=== PATIENT | female | born 2005 | race Caucasian/White ===

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

== ENCOUNTER 2025-07-03 20:15 | Emergency (ER) | payer MEDICAID, SELFPAY ==
--- OUTSIDE RECORDS SUMMARY | 2025-05-24 09:00 | XMS_ITS | Encounter Summary ---
Author Organization [facility] Address [address] [place] [address] Care Team Providers Care Infantryman Name Role Phone Minda Flower M.D. Primary Care Provider [phone] Reason for Visit * Reason Comments Follow-up * Appointment Request (Routine) - Closed Specialty Diagnoses / Procedures Referred By Blake caldwell Referred To Contact Family Medicine Referral ID Status Reason Start Date Expiration Date Visits Re quested Visits Authorized [id number] Closed 05/09/2025 08/09/2026 1 1 Encounter Details Date Type Department Care Team (Late st Contact Info) Description 05/24/2025 9:00 AM CDT Office Visit Department of Family Medicine and Residency in [address] [phone] Higinio Alonzo D.O. [address] [place] [phone] Preoperative Exam (Primary Dx) Discharge Disposition: Home or Self Care Social History Tobacco Use Types Packs/Day Years Used Date Smoking Tobacco: Never Passive Smoke Exposure: Past Smokeless Tobacco: Never Tobacco Cessation:Counseling Given: Not Answered Alcohol Use Standard Drinks/Week Comments Yes 1 (1 standard drink = 0.6 oz pur e alcohol) [facility] Utilities Answer Date Recorded In the past 12 months has e electric, gas, oil, or water company threatened to shut off services in your home? No 10/10/2024 Hunger Vital Sign Answer Date Recorded Within the past 12 months, y ou worried that your food would run out before you got the money to buy more. Never true 10/10/20 24 Within the past 12 months, t he food you bought just didn't last and you didn't have money to get more. Never true 10/10/2024 PRAPARE - Transportation Answer Date Re corded In the past 12 months, has l ack of transportation kept you from medical appointments or from getting medications? No 09/23 In the past 12 months, has l ack of transportation kept you from meetings, work, or from getting things needed for daily living? No 10/10/2024 Depression Answer Date Recor ded PHQ-9 Total Score (max 27) 19 04/11 Housing Stability Answer Date Recorded What is your living situation today? I have a [facility] place to live 10/10/2024 Comments No Sex and Gender Information Value Date Recorded Sex Assigned at Female 10/10/2024 9:07 AM GLUELINE WORKER Legal Sex Female 5:05 PM GLUELINE WORKER Gender Identity Female 10/10/2024 9:07 AM GLUELINE WORKER Sexual Orientation Choose not to disclose 2023 9:07 AM GLUELINE WORKER documented as of this encounter Last Filed Vital Signs Vital Sign Reading Time Taken Comments Blood Pressure 119/75 05/24/2025 8:58 AM CDT Pulse 91 05/24/2025 8:58 AM CDT Temperature - - Respiratory Rate - - Oxygen Saturation - - Inhaled Oxygen Concentration - - Weight 96.6 kg (212 lb 15.4 oz) 05/24/2025 8:58 AM CDT Height 171.7 cm (5' 7.6) 05/24/2025 8:58 AM CDT Body Mass Index 32.77 05/24/2025 8:58 AM CDT documented in this encounter H&P Notes * Higinio Alonzo D.O. - 05/24/2025 9:00 AM CDT CHIEF COMPLAINT Pre-operative evaluation of risk HISTORY OF PRESENT ILLNESS Poppy Lopez is a 19 y.o. female who I am asked to see in preoperative consult prior to undergoing Knee arthroscopy scar tissue and lesion removal due to history of torn ACL partial tear of meniscus. The surgery is scheduled for 05/29/25. Patient is feeling mildly ill this morning. 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 She is afebrile and free of systemic symptoms. ALLERGIES Allergies[1] MEDICATIONS Medications Ordered Prior to Encounter[2] PAST MEDICAL/SURGICAL HISTORY Cardiovascular History Previous DC: no CABG: no Stress tests: no ECHO: no Catheterization: no Pulmonary History Asthma/ COPD: no TONY: no Other Renal insufficiency: no Liver disease or cirrhosis: no Bloodborne infectious history: no Stroke or seizure history: no Appliances or implants: no Medical History[3] Surgical History[4] SOCIAL HISTORY Student at [employer], Pre-PT, Working in a longterm and hoping to join [email or web address]. FAMILY HISTORY Anesthesia history: Patient is not aware of any personal or family history of sudden cardiac ,malignant hyperthermia, or other anesthesia complications. Family History[5] REVIEW OF SYSTEMS Functional Status Assessment: 4-10 METs (can do heavy housework, climb 2 flights of stairs) Constitutional: - Negative for fever, weight gain of more than 10 pounds and weight loss of more than 10 pounds. Skin: - Negative for skin rash and change in mole or skin spot. Eyes: - Negative for visual problems and sudden loss of vision. ENT: Positive for sinus congestion. - Negative for difficulty hearing. Respiratory: Positive for coughing up mucus (phlegm). Cardiovascular: - Negative for chest pain, pressure or tightness, rapid or fluttering heart beat, shortness of breath when lying flat (Congestion - in nose and chest) and concerns for appearing blue or pale. Pain inthe calf muscles when walking: Only in the right leg while. Gastrointestinal: - Negative for abdominal (belly) pain or cramping, nausea and vomiting. Genitourinary: - Negative for difficulty urinating and pain with urination. Musculoskeletal: Positive for pain or stiffness in the joints, joint swelling and muscle pain/stiffness. Neurological: - Negative for light-headedness and headaches. Psychiatric/Behavioral: Positive for loud snoring. - Negative for excessive daytime sleepiness/tiredness, stopping breathing, choking, or gasping while asleep and sleep disturbance. PHYSICAL EXAM Vitals: BP 119/75 BMI 32.77 GENERAL: Well appearing, no acute distress AIRWAY: Mallampati score II (hard and soft palate, upper portion of tonsils anduvula visible). Cervical spine mobility Normal. Temporomandibular joint mobility normal. Teeth: natural, (-) diseased, (-) loose . PULMONARY: Clear to bilateral auscultation, no wheezing or crackles appreciated. Oxygen saturation adequate on room air CARDIOVASCULAR: Regular rate and rhythm, no murmur appreciated. EXTREMITIES: Trace edema. NEUROLOGICAL: Alert and oriented x3. Cognitively intact, able to understand reason for surgical procedure and wishes to proceed. HEMATOLOGIC: No petechiae, bruising or rashes ASSESSMENT/ PLAN Preoperative Exam Patient does not have any contraindications for planned surgery at this time. Previous surgery for torn ACL and partially torn meniscus went without complication and patient had no adverse reactions to anesthesia. This patient is medically optimized for surgery. Workup: - Recommended pre-op diagnostic workup to include: Age < 50: No additional tests required Procedure risk: - Intermediate Risk (cardiac risk <5%): CEA, head/neck surgery, intraabdominal or intrathoracic surgery, orthopedic surgery, prostate surgery - Orthopedic Surgery Cardiac risk: - History of ischemic heart disease: No (0) - History of heart failure: No (0) - History of cerebrovascular disease (stroke or TIA): No (0) - Diabetes requiring pre-operative insulin: No (0) - Pre-operative creatinine >2: No (0) - High-risk surgery (intraperitoneal, intrathoracic, or suprainguinal vascular): No (0) Overall Cardiac Risk: RCRI score is Class I (0 points), indicating a 0.4% risk of a major cardiac event . Further cardiac workup prior to surgery to include: Not indicated at this time. Pulmonary Risk: - High risk diagnoses include: N/A - Stop Bang Total Score: Sleep study performed in december was negative for sleep apnea Other: - Diabetes: The patient does not have diabetes - Delirium Risk: does not have increased risk. Perioperative Medication Management: - Discontinue NSAID use 7 days prior to procedure. - Higinio Alonzo D.O. Resident Physician [facility] Family Medicine Residency I saw and evaluated the patient with the teaching physician, Mark Anthony Madrid DO. They participated in the smith portions of the service and reviewed and agree with my documentation. [1] Allergies Allergen Reactions Amoxicillin Rash [2] Current Outpatient Medications on File Prior to Visit Medication Sig Dispense Refill acetaminophen (TylenoL) 325 mg tablet Take 325 mg by mouth every 4 (four) hours as needed. buPROPion XL (Wellbutrin XL) 300 mg 24 hr tablet Take 1 tablet (300 mg total) by mouth every morning. ibuprofen 600 mg tablet Take 600 mg by mouth every 8 (eight) hours as needed. norgestimate-ethinyl estradioL (Ortho Tri-Cyclen, 28,) 0.18 mg/0.215 mg/0.25 mg- 35 mcg (28) per tablet Take 1 tablet by mouth daily. 28 tablet 12 No current facility-administered medications on file prior to visit. [3] Past Medical History: Diagnosis Date Anxiety Generalized Disorder 2013 Concussion Loss Of Consciousness Unspecified Duration Initial 2012 Depressive Disorder 2014 Hypertension NOS [4] Past Surgical History: Procedure Laterality Date ACHILLES TENDON LENGTHENING Bilateral 2013 ANTERIOR CRUCIATE LIGAMENT REPAIR Right 07/21/2024 + meniscus repair OTHER SURGICAL HISTORY Gastrocnemius recession acl and meniscus repair [5] Family History Problem Relation Name Age of Onset Other (breast cysts) Mother isamar Thyroid disease Mother isamar Degenerative disc disease Mother isamar Depression Mother isamar Anxiety disorder Mother isamar Obesity Mother isamar ADD Mother isamar Hypertension Father Hyperlipidemia Father Asthma Sister Allergies Sister Other (breast cysts) Sister Hypertension Maternal Grandmother Diabetes type II Maternal Grandmother Arthritis Maternal Grandmother Stroke Grandfather maternal Coronary artery disease Grandfather maternal Hypertension Grandmother maternal Ovarian cancer Grandmother Breast cancer Maternal Great Grandmother Obesity Paternal Grandmother daleen Alcohol abuse Sister dad Drug abuse Sister dad Depression Sister dad Diabetes Sister dad Hypertension Sister dad Stroke Sister dad Asthma Sister dad Anxiety disorder Sister dad Arthritis Sister dad ADD Sister dad Alcohol abuse Mother's Brother Que Depression Mother's Brother Que Anxiety disorder Mother's Brother Que Suicide Attempts Mother's Brother Que Depression Sister cheridan Anxiety disorder Sister cheridan Depression Brother ronald ADD Brother ronald Depression Brother navi ADD Brother navi Cosigned by Mark Anthony Madrid D.O. at 05/24/2025 2:40 PM CDT documented in this encounter Plan of Treatment Upcoming Encounters Date Type Department Care Team (Late st Contact Info) Description 10/17/2025 11:30 AM GLUELINE WORKER Office Visit Department of Family Medicine in [place], [place] [address] [place] [phone] Minda Flower M.D. [address] [place] [phone] documented as of this encounter Visit Diagnoses Diagnosis Preoperative Exam- Primary documented in this encounter Additional Health Concerns Assessment Noted Time PHQ-9 Depression Total Score: 19 025 3:59 PM CDT documented as of this encounter Care Teams Infantryman Relationship Specialty Start Date End Date Minda Flower M.D. [address] [place] [phone] PCP - General Family Medicine 10/17/24 documented as of this encounter
--- OUTSIDE RECORDS SUMMARY | 2025-05-24 10:20 | XMS_ITS | Encounter Summary ---
Author Organization [facility] Address [address] [place] [address] Care Team Providers Care Contracting Analyst Name Role Phone Minda Flower M.D. Primary Care Provider [phone] Reason for Referral * Outpatient (Routine) - Closed Specialty Diagnoses / Procedures Referred By Contac t Referred To Contact Diagnoses Lump In The Right Breast Upper Outer Quadrant Lump In The Left Breast Upper Outer Quadrant Procedures BI Ultrasound Breast Focused Bilateral Beverly Rosenberg M.D. [address] [place] [phone] Phone: tel: fax: [facility] Referral ID Status Reason Start Date Expiration Date Visits Re quested Visits Authorized [id number] Closed 05/24/2025 08/24/2026 1 1 Reason for Visit * Reason Comments Follow-up * Appointment Request (Routine) - Closed Specialty Diagnoses / Procedures Referred By Contac t Referred To Contact Family Medicine Referral ID Status Reason Start Date Expiration Date Visits Re quested Visits Authorized [id number] Closed 04/25/2025 07/26/2026 1 1 Encounter Details Date Type Department Care Team (Late st Contact Info) Description 05/24/2025 10:20 AM CDT Office Visit Department of Family Medicine in [place], [place] [address] [place] [phone] Beverly Rosenberg M.D. [address] [place] [phone] Menstrual Irregularity (Primary Dx); Screening Examination For Thyroid Disorder; Lump In The Right Breast Upper Outer Quadrant; Lump In The Left Breast Upper Outer Quadrant Social History Tobacco Use Types Packs/Day Years Used Date Smoking Tobacco: Never Passive Smoke Exposure: Past Smokeless Tobacco: Never Alcohol Use Standard Drinks/Week Comments Yes 1 (1 standard drink = 0.6 oz pur e alcohol) [facility] Utilities Answer Date Recorded In the past [...] your living situation today? I have a [facility] place to live 10/10/2024 Comments No Sex and Gender Information Value Date Recorded Sex Assigned at Female 10/10/2024 9:07 AM DATA MINER Legal Sex Female 5:05 PM DATA MINER Gender Identity Female 10/10/2024 9:07 AM DATA MINER Sexual Orientation Choose not to disclose 2023 9:07 AM DATA MINER documented as of this encounter Last Filed Vital Signs Vital Sign Reading Time Taken Comments Blood Pressure 100/58 05/24/2025 10:15 AM CDT Pulse 92 05/24/2025 10:15 AM CDT Temperature 37.3 C (99.1 F) 05/24/2025 10:15 AM CDT Respiratory Rate - - Oxygen Saturation - - Inhaled Oxygen Concentration - - Weight 96.3 kg (212 lb 4.9 oz) 05/24/2025 10:15 AM CDT Height - - Body Mass Index 32.67 05/24/2025 8:58 AM CDT documented in this encounter Progress Notes * Beverly Rosenberg M.D. - 05/24/2025 10:20 AM CDT DATE OF VISIT: 05/24/2025 SUBJECTIVE CHIEF COMPLAINT / REASON FOR VISIT Poppy Lopez is a 19 y.o. female who presents for evaluation of Follow-up. The patient verbally consented to an audio recording of their visit to assist with the completion of documentation. History of Present Illness Poppy Lopez is a 19 year old female who presents for follow-up results after a preoperative consult for knee arthroscopy. She experiences menstrual irregularities, having had periods twice a month before starting control. Since starting control, she has had one period this month. She is monitoring the effects of the control on her cycle. Her family history includes hyperthyroidism, and her recent TSH level is 0.5, within the normal range. She is concerned about potential thyroid issues in the future. She has detected a lump in her left breast and has a family history of benign breast lumps. She seeks further evaluation for this finding. She is currently taking Wellbutrin 300 mg, managed by her psychiatrist, with an adequate supply. OBJECTIVE VITAL SIGNS BP 100/58 (BP Location: Right arm, Patient Position: Sitting, Cuff Size: Large) Pulse 92 Temp 37.3 ??C (Temporal) Wt 96.3 kg LMP 05/03/2025 (Approximate) BMI 32.67 kg/m?? Physical Exam Constitutional Appearance: She is well-developed. HENT Head: Normocephalic and atraumatic. Eyes General: No scleral icterus. Conjunctiva/sclera: Conjunctivae normal. Chest Chest wall: No mass, swelling or tenderness. Breasts: Breasts are symmetrical. Right: Mass present. No skin change or tenderness. Left: Mass present. No skin change or tenderness. Comments: Right breast lump palpable at 11:00, left breast lump palpable at 2:00 Lymphadenopathy Upper Body: Right upper body: No axillary adenopathy. Left upper body: No axillary adenopathy. Neurological Mental Status: She is alert and oriented to person, place, and time. Psychiatric Behavior: Behavior normal. Thought Content: Thought content normal. Physical Exam ASSESSMENT/ PLAN Menstrual Irregularity Menstrual Irregularities Initiated control due to frequent periods. Thyroid function normal. control partially effective. - Reassess control effectiveness in future visits. Screening Examination For Thyroid Disorder Hyperthyroidism Risk Family history of hyperthyroidism. TSH level normal. Monitoring necessary due to family history. - Monitor thyroid function annually or if symptoms develop. Lump In The Right Breast Upper Outer Quadrant Breast Lump right breast lump at 11:00, left breast lump at 2:00. Reports left breast lump. Family history of benign lumps. Examination and possible ultrasound planned. - Perform breast examination. - Order breast ultrasound if indicated. Orders: BI Ultrasound Breast Focused Bilateral; Future Lump In The Left Breast Upper Outer Quadrant Breast Lump Reports left breast lump. Family history of benign lumps. Examination and possible ultrasound planned. - Perform breast examination. - Order breast ultrasound if indicated. Orders: BI Ultrasound Breast Focused Bilateral; Future documented in this encounter Plan of Treatment Upcoming Encounters Date Type Department Care Team (Late st Contact Info) Description 10/17/2025 11:30 AM DATA MINER Office Visit Department of Family Medicine in [place], [place] [address] [place] [phone] Minda Flower M.D. [address] [place] [phone] documented as of this encounter Results * BI Ultrasound Breast Focused Bilateral (06/09/2025 8:03 AM CDT) Anatomical Region Laterality Modality Breast, Breast Imaging RST L OS, Breast Imaging ARZ LOS, Breast Imaging FLA LOS Bilateral Ultrasound Impressions 06/09/2025 8:06 AM CDT No sonographic findings of malignancy. RECOMMENDATION: Clinical Management ASSESSMENT: BI-RADS: 1: Negative. Narrative 06/09/2025 8:06 AM CDT EXAM: BI ULTRASOUND BREAST FOCUSED BILATERAL INDICATION: Palpable lump COMPARISON: No prior exams were available for comparison. FINDINGS: Targeted ultrasound of the palpable area concern in the right breast at the 9:00 position 9 cm from the nipple and 11:00 position 2 cm from the nipple demonstrates no underlying sonographic abnormality. There is a ridge of fibroglandular tissue. Targeted ultrasound of the left breast at the palpable area of concern at the 2:00 position 4 cm from the nipple demonstrates no suspicious findings. There is a ridge of fibroglandular tissue. Procedure Note Denilson Reed M.D. - 06/09/2025 EXAM: BI ULTRASOUND BREAST FOCUSED BILATERAL INDICATION: Palpable lump COMPARISON: No prior exams were available for comparison. FINDINGS: Targeted ultrasound of the palpable area concern in the right breast atthe 9:00 position 9 cm from the nipple and 11:00 position 2 cm from thenipple demonstrates no underlying sonographic abnormality. There is aridge of fibroglandular tissue. Targeted ultrasound of the left breast at the palpable area of concern atthe 2:00 position 4 cm from the nipple demonstrates no suspiciousfindings. There is a ridge of fibroglandular tissue. IMPRESSION: No sonographic findings of malignancy. RECOMMENDATION: Clinical Management ASSESSMENT: BI-RADS: 1: Negative. Beverly Rosenberg M.D. IM BI PROCEDURES Final Result documented in this encounter Visit Diagnoses Diagnosis Menstrual Irregularity- Primary Screening Examination For Thyroid Disorder Lump In The Right Breast Upper Outer Quadrant Lump In The Left Breast Upper Outer Quadrant Lump In The Right Breast Upper Outer Quadrant Lump In The Left Breast Upper Outer Quadrant documented in this encounter Additional Health Concerns Assessment Noted Time PHQ-9 Depression Total Score: 19 025 3:59 PM CDT documented as of this encounter Care Teams Contracting Analyst Relationship Specialty Start Date End Date Minda Flower M.D. [address] [phone] PCP - General Family Medicine 10/17/24 documented as of this encounter
--- OUTSIDE RECORDS SUMMARY | 2025-06-09 07:40 | XMS_ITS | Encounter Summary ---
Author Organization [facility] Address [address] [place] [address] Care Team Providers Care Slab Installer Name Role Phone Minda Flower M.D. Primary Care Provider [phone] Reason for Referral * Outpatient (Routine) - Closed Specialty Diagnoses / Procedures Referred By Blake t Referred To Contact Diagnoses Lump In The Right Breast Upper Outer Quadrant Lump In The Left Breast Upper Outer Quadrant Procedures BI Ultrasound Breast Focused Bilateral Bevrely Rosenberg M.D. [address] [place] [address] Phone: tel: fax: [facility] Referral ID Status Reason Start Date Expiration Date Visits Re quested Visits Authorized [id number] Closed 05/24/2025 08/24/2026 1 1 Reason for Visit * Outpatient (Routine) - Closed Specialty Diagnoses / Procedures Referred By Contac t Referred To Contact Diagnoses Lump In The Right Breast Upper Outer Quadrant Lump In The Left Breast Upper Outer Quadrant Procedures BI Ultrasound Breast Focused Bilateral Beverly Rosenberg M.D. [address] [place] [address] Phone: tel: fax: [facility] Referral ID Status Reason Start Date Expiration Date Visits Re quested Visits Authorized [id number] Closed 05/24/2025 08/24/2026 1 1 Encounter Details Date Type Department Care Team (Late st Contact Info) Description 06/09/2025 7:40 AM CDT - 06/09/2025 11:59 PM CDT Hospital Encounter Department of Radiology, [facility], in [place], [place] [address] [place] [phone] Beverly Rosenberg M.D. [address] [facility] [place] [phone] Lump In The Right Breast Upper Outer Quadrant; Lump In The Left Breast Upper Outer Quadrant Discharge Disposition: Home or Self Care Social History Tobacco Use Types Packs/Day Years Used Date Smoking Tobacco: Never Passive Smoke Exposure: Past Smokeless Tobacco: Never Alcohol Use Standard Drinks/Week Comments Yes 1 (1 standard drink = 0.6 oz pur e alcohol) [facility] Utilities Answer Date Recorded In the past 12 months has [employer], gas, oil, or water [employer] threatened to shut off services in your [...] your living situation today? [facility] a [facility] place to live 10/10/2024 Comments No Sex and Gender Information Value Date Recorded Sex Assigned at Female 10/10/2024 9:07 AM CIGARETTE ROLLER Legal Sex Female 5:05 PM CIGARETTE ROLLER Gender Identity Female 10/10/2024 9:07 AM CIGARETTE ROLLER Sexual Orientation Choose not to disclose 2023 9:07 AM CIGARETTE ROLLER documented as of this encounter Medications at Time of Discharge acetaminophen (TylenoL) 325 mg tablet Take 325 mg by mouth every 4 (four) hours as needed. 07/18/2024 buPROPion XL (Wellbutrin XL) 300 mg 24 hr tablet Take 1 tablet (300 mg total) by mouth every morning. 04/11/2025 ibuprofen 600 mg tablet Take 600 mg by mouth every 8 (eight) hours as needed. 07/18/2024 norgestimate-ethi nyl estradioL (Ortho Tri-Cyclen, 28,) 0.18 mg/0.215 mg/0.25 mg-35 mcg (28) per tablet Take 1 tablet by mouth daily. 28 tablet 12 04/11/2025 04/11/2026 documented as of this encounter Plan of Treatment Upcoming Encounters Date Type Department Care Team (Late st Contact Info) Description 10/17/2025 11:30 AM CIGARETTE ROLLER Office Visit Department of Family Medicine in [place], [place] [address] [place] [phone] Minda Flower M.D. [address] [place] [phone] documented as of this encounter Procedures Procedure Name Priority Date/Time Associated Diagnosis Comments BI ULTRASOUND BREAST FOCUSED BILATERAL RAD - Routine (most inpatients and all outpatients) 06/09/2025 8:03 AM CDT Lump In The Right Breast Upper Outer Quadrant Lump In The Left Breast Upper Outer Quadrant documented in this encounter Results * BI Ultrasound Breast [...] documented in this encounter Visit Diagnoses Diagnosis Lump In The Right Breast Upper Outer Quadrant Lump In The Left Breast Upper Outer Quadrant documented in this encounter Additional Health Concerns Assessment Noted Time PHQ-9 Depression Total Score: 19 04/11/2 025 3:59 PM CDT documented as of this encounter Care Teams Slab Installer Relationship Specialty Start Date End Date Minda Flower M.D. [address] [phone] PCP - General Family Medicine 10/17/24 documented as of this encounter
--- OUTSIDE RECORDS SUMMARY | 2025-07-03 20:18 | XMS_ITS | Patient Health Record ---
Author Organization [facility] Address [address] [facility] [address] [place] [address] Care Team Providers Care Registrar [employer] Name Role Phone RADHA FRANKS, CHECO Unavailable [phone] Pamela FRANKS, Wyatt Unavailable [phone] Reason For Referral No Information Plan Of Treatment No Information Insurance Providers Payer Name Payer Address Payer Phone Subscriber Number Group Number Insured Name Patient Relationship to Insured Coverage Start Date Coverage End Date MEDICA PMAP [address] [address] [place] [phone] [id number] Poppy Lopez Self - patient is the insured 6
--- OUTSIDE RECORDS SUMMARY | 2025-07-03 20:18 | XMS_ITS | Patient Health Record ---
Author Organization [facility] Address [address] [place] [address] Care Team Providers Care Automation Qa Analyst Name Role Phone None, None Primary Care Provider ANEUDY Lundberg [phone] Allergies Allergen (clinical drug ingredient) Drug/Non Drug Allergy documented on EMR Reaction Allergy Type Onset Date Status amoxicillin Amoxicillin Unknown Drug Allergy Act annabel Reason For Referral No Information Medications Medication SIG (Take, Route, Frequency, Duration) Notes Start Date End Date Status Dexmethylphenidate HCl ER Active Escitalopram Oxalate Active Social History Tobacco Use: Social History Observation Description Date Details (start date - stop date) Never Smoker NA - NA Social History Alcohol Use: Social Info Question Answer Notes Recreational drugs Recreational Drug Use: No Alcohol Screen Did you have a drink containing alcohol in the past year? No Points 0 Interpretation Negative Tobacco Use: Social Info Question Answer Notes Tobacco use/smoking Are you a nonsmoker Problems Problem Type SNOMED Code ICD Code Onset Dates Problem Status W/U Status Risk Notes Problem Auditory processing disorder (882813892) Auditory processing disorder (H93.25) Active confirmed Plan Of Treatment No Information Insurance Providers Payer Name Payer Address Payer Phone Subscriber Number Group Number Insured Name Patient Relationship to Insured Coverage Start Date Coverage End Date Buck [employer] [address] [place] [phone] [id number] Poppy Lopez Self - patient is the insured [place] [employer] [address] [address] [place] [phone] [id number] Lopez, Poppy Self - patient is the insured Medical (General) History Surgical History Surgery Date(Month/Year) Legs
--- OUTSIDE RECORDS SUMMARY | 2025-07-03 20:19 | XMS_ITS | Encounter Summary ---
Author Organization [facility] Address [address] [place] [address] Care Team Providers Care Warehouse Assistant Name Role Phone Minda Flower M.D. Primary Care Provider [phone] Encounter Details Date Type Department Care Team (Late st Contact Info) Description 05/24/2025 Clinical Communication Department of Family Medicine and Residency in [address] [address] Higinio Alonzo D.O. [address] [place] [phone] Social History Tobacco Use Types Packs/Day Years Used Date Smoking Tobacco: Never Passive Smoke Exposure: Past Smokeless Tobacco: Never Alcohol Use Standard Drinks/Week Comments Yes 1 (1 standard drink = 0.6 oz pur e alcohol) [facility] Utilities Answer Date Recorded In the past 12 months has [employer], gas, oil, or water [employer] threatened to shut off services in your [...] your living situation today? I have a [facility] place to live 10/10/2024 Comments No Sex and Gender Information Value Date Recorded Sex Assigned at Female 10/10/2024 9:07 AM GRAINER MACHINE Legal Sex Female 5:05 PM GRAINER MACHINE Gender Identity Female 10/10/2024 9:07 AM GRAINER MACHINE Sexual Orientation Choose not to disclose 2023 9:07 AM GRAINER MACHINE documented as of this encounter Miscellaneous Notes * Telephone Encounter - Vinita Carney - 05/25/2025 10:22 AM CDT Pre-op notes faxed to requested facility. * Telephone Encounter - Vinita Carney - 05/25/2025 10:20 AM CDT ----- Message from Diane Barron sent at 05/24/2025 2:55 PM CDT ----- ----- Message ----- From: Higinio Alonzo D.O. Sent: 05/24/2025 2:30 PM CDT To: [facility] Net Ui Developer/Ma Team Please Fax to [phone] [facility] documented in this encounter Plan of Treatment Upcoming Encounters Date Type Department Care Team (Late st Contact Info) Description 10/17/2025 11:30 AM GRAINER MACHINE Office Visit Department of Family Medicine in [place], [place] [address] [place] [address] Minda Flower M.D. [address] [place] [address] documented as of this encounter Visit Diagnoses Not on filedocumented in this encounter Additional Health Concerns Assessment Noted Time PHQ-9 Depression Total Score: 19 025 3:59 PM CDT documented as of this encounter Care Teams Warehouse Assistant Relationship Specialty Start Date End Date Minda Flower M.D. [address] [phone] PCP - General Family Medicine 10/17/24 documented as of this encounter
--- OUTSIDE RECORDS SUMMARY | 2025-07-03 20:19 | XMS_ITS | Clinical Summary ---
Author Organization [facility] Address [address] [place] [address] Care Team Providers Care Rolls Mill Operator Name Role Phone Minda Flower M.D. Primary Care Provider [phone] Source Comments Patient records contain information from all sites at [facility]. For routine questions regarding patient records, call [phone] during business hours, M-F 8:00 AM - 5:00 PM Central Time. Record requests for emergency care only can be directed to [phone] at any time.[facility] Allergies Active Allergy Reactions Criticality Noted Date Comments Amoxicillin Rash 10/29/2012 Medications * This document contains information received from the source organization and may not represent a complete record from that organization. acetaminophen (TylenoL) 325 mg tablet Take 325 mg by mouth every 4 (four) hours as needed. 07/18/2024 Active ibuprofen 600 mg tablet Take 600 mg by mouth every 8 (eight) hours as needed. 07/18/2024 Active norgestimate-eth inyl estradioL (Ortho Tri-Cyclen, 28,) 0.18 mg/0.215 mg/0.25 mg-35 mcg (28) per tablet Take 1 tablet by mouth daily. 28 tablet 12 04/11/2025 Active buPROPion XL (Wellbutrin XL) 300 mg 24 hr tablet Take 1 tablet (300 mg total) by mouth every morning. 04/11/2025 Active Active Problems Problem Noted Date Diagnosed Date Depression Major Recurrent In Remission 10/10/20 24 Obsessive Compulsive Disorder 05/06/2019 Insomnia Psychophysiologic 05/06/2019 Posttraumatic Stress Disorder Brief 04/04/2019 Attention Deficit Hyperactive Disorder 5 Overview (04/14/2017): Disorder Attention Deficit Hyperactive (ADHD) Resolved Problems Problem Noted Date Diagnosed Date Resolved Date Obsessive Compulsive Disorder 05/06/2019 10/10/2024 Encounters * This document contains information received from the source organization and may not represent a complete record from that organization. Date Type Department Care Team Description 06/09/2025 7:40 AM CDT - 06/09/2025 11:59 PM CDT Hospital Encounter Department of Radiology, [facility], in [address] [address] Beverly Rosenberg M.D. Lump In The Right Breast Upper Outer Quadrant; Lump In The Left Breast Upper Outer Quadrant Discharge Disposition: Home or Self Care 06/09/2025 Clinical Communication Department of Radiology, [facility], in [address] [address] Shanta Santos R.N. HERS (negative palp) 05/24/2025 10:20 AM CDT Office Visit Department of Family Medicine in [place], [place] [address] [place] [address] Beverly Rosenberg M.D. Menstrual Irregularity (Primary Dx); Screening Examination For Thyroid Disorder; Lump In The Right Breast Upper Outer Quadrant; Lump In The Left Breast Upper Outer Quadrant 05/24/2025 9:00 AM CDT Office Visit Department of Family Medicine and Residency in [address] [address] Higinio Alonzo D.OXenia Preoperative Exam (Primary Dx) Discharge Disposition: Home or Self Care 05/24/2025 Clinical Communication Department of Family Medicine and Residency in [address] [address] Higinio Alonzo D.OXenia 05/04/2025 Documentation Department of Family Medicine in [place] [address] [place] [address] Que Don M.D. 04/11/2025 2:45 PM CDT - 04/11/2025 11:59 PM CDT Hospital Encounter Department of Laboratory Medicine, [facility], in [address] [address] Que Don M.D. Menorrhagia Discharge Disposition: Home or Self Care 04/11/2025 2:00 PM CDT Office Visit Department of Family Medicine in [address] [address] Que Don M.D. Menorrhagia (Primary Dx); Dysmenorrhea 04/11/2025 Results Follow-Up Department of Family Medicine in [address] [address] Que Don M.D. Thyroid Function [place], Hemoglobin from Last 3 Months Immunizations Immunization Administration Dates Next Due 4vHPV (discontinued) 06/19/2015 9vHPV 04/05/2018,06/16/2016 DTaP (Infanrix, [employer]) 07/11/2010,,06/26/2006,2004 H1N1 All Forms 11/20/2009 HepA Pediatric/Adolescent 06/19/2015,04/14/2011 HepB Pediatric/Adolescent 07/11/2010,02/01/2010, 06/02/2005 Hib (PRP-T) (ACTHIB, HIBERIX) 06/26/2006, 005 IPV 02/01/2010,11/20/2009,06/02/2005 Influenza, Unspecified 11/20/2009 MCV4 (Menactra)(Discontinued) 06/16/2016 MMR 11/20/2009,06/26/2006 PCV7 (discontinued) 06/26/2006,06/02/2005 Tdap 06/16/2016 MACKENZIE 11/20/2009,06/26/2006 influenza vaccine quad (FLUZONE/FLUARIX) (6 months and older)(PF) 09/07/2018 Family History Medical History Relation Name Comments ADD Brother 1 ronald Depression Brother 1 ronald ADD Brother 2 navi Depression Brother 2 navi Hyperlipidemia Father Hypertension Father Coronary artery disease Grandfather maternal Stroke Grandfather maternal Hypertension Grandmother 1 maternal Ovarian cancer Grandmother 2 Arthritis Maternal Grandmother Diabetes type II Maternal Grandmother Hypertension Maternal Grandmother Breast cancer Maternal Great Grandmother ADD Mother isamar Anxiety disorder Mother isamar Degenerative disc disease Mother isamar Depression Mother isamar Obesity Mother isamar Thyroid disease Mother isamar breast cysts Mother isamar Alcohol abuse Mother's Brother Que Anxiety disorder Mother's Brother Que Depression Mother's Brother Que Suicide Attempts Mother's Brother Que Obesity Paternal Grandmother daleen ADD Sister 1 dad Alcohol abuse Sister 1 dad Anxiety disorder Sister 1 dad Arthritis Sister 1 dad Asthma Sister 1 dad Depression Sister 1 dad Diabetes Sister 1 dad Drug abuse Sister 1 dad Hypertension Sister 1 dad Stroke Sister 1 dad Allergies Sister 2 Asthma Sister 2 breast cysts Sister 2 Anxiety disorder Sister 3 cheridan Depression Sister 3 cheridan Relation Name Status Comments Brother 1 ronald Alive Brother 2 navi Alive Father Grandfather maternal Grandmother 1 maternal Grandmother 2 Alive Maternal Grandmother Maternal Great Grandmother Mother isamar Alive Mother's Brother Que Alive Paternal Grandmother daleen Alive Sister 1 dad Alive Sister 2 Sister 3 cheridan Alive Social History Tobacco Use Types Packs/Day Years Used Date Smoking Tobacco: Never Passive Smoke Exposure: Past Smokeless Tobacco: Never Tobacco Cessation:Counseling Given: Not Answered Alcohol Use Standard Drinks/Week Comments Yes 1 (1 standard drink = 0.6 oz pur e alcohol) [facility] Utilities Answer Date Recorded In the past 12 months has e [employer], gas, oil, or water company threatened to [...] your living situation today? I have a [facility] place to live 10/10/2024 Comments No Sex and Gender Information Value Date Recorded Sex Assigned at Female 10/10/2024 9:07 AM COOLING TOWER OPERATOR Legal Sex Female 5:05 PM COOLING TOWER OPERATOR Gender Identity Female 10/10/2024 9:07 AM COOLING TOWER OPERATOR Sexual Orientation Choose not to disclose 2023 9:07 AM COOLING TOWER OPERATOR Last Filed Vital Signs Vital Sign Reading Time Taken Comments Blood Pressure 100/58 05/24/2025 10:15 AM CDT Pulse 92 05/24/2025 10:15 AM CDT Temperature 37.3 C (99.1 F) 05/24/2025 10:15 AM CDT Respiratory Rate - - Oxygen Saturation - - Inhaled Oxygen Concentration - - Weight 96.3 kg (212 lb 4.9 oz) 05/24/2025 10:15 AM CDT Height 171.7 cm (5' 7.6) 05/24/2025 8:58 AM CDT Body Mass Index 32.67 05/24/2025 8:58 AM CDT Plan of Treatment Upcoming Encounters Date Type Department Care Team (Late st Contact Info) Description 10/17/2025 11:30 AM COOLING TOWER OPERATOR Office Visit Department of Family Medicine in [place], [place] [address] [place] [phone] Minda Flower M.D. [address] [place] [phone] Health Maintenance Due Date Last Done Comments Hepatitis C Screening 2004 TB Screening during Well Child Visit 2004 1 week Well Child Check-Up 2004 1 month Well Child Check-Up 01/04/2005 2 month Well Child Check-Up 02/05/2005 4 month Well Child Check-Up 03/21/2005 9 month Well Child Check-Up 08/21/2005 15 month Well Child Check-Up 02/18/2006 18 month Well Child Check-Up 05/21/2006 2 year Well Child Check-Up 11/20/2006 30 month Well Child Check-Up 05/21/2007 3 year Well Child Check-Up 11/20/2007 5 year Well Child Check-Up 11/20/2009 IPV Vaccines (3 of 3 - 4-dose series) 08/04/2010 02/01/2010, 11/20/2009, 06/02/2005 6 year Well Child Check-Up 11/20/2010 7 year Well Child Check-Up 11/20/2011 8 year Well Child Check-Up 11/20/2012 10 year Well Child Check-Up 11/20/2014 12 year Well Child Check-Up 11/20/2016 13 year Well Child Check-Up 11/20/2017 14 year Well Child Check-Up 11/20/2018 Vision Screening during Well Child Visit 2018 15 year Well Child Check-Up 11/20/2019 16 year Well Child Check-Up 11/20/2021 18 year Well Child Check-Up 11/20/2022 20 year Well Child Check-Up 11/20/2024 Depression Monitoring (PHQ-9) 08/12/2025 04/11/2025 Influenza Vaccine (#1) 2025 09/07/2018, 2008 COVID-19 Vaccine ( season) 2025 Postponed from 07/24/2024 (Patient Refused) DTaP,Tdap,and Td Vaccines (6 - Td or Tdap) 06/16/2026 06/16/2016, 07/11/2010, 11/20/2009, Additional history exists Pneumococcal vaccine (0-49 years) Aged Out 06/26/2006, 06/02/2005 No longer eligibl e based on patient's age to complete this topic Varicella Vaccines Completed 11/20/2009, 06/26/2006 Hepatitis B Vaccines Completed 07/11/2010, 02/01/2010, 06/02/2005 Meningococcal Vaccine Aged Out 06/16/2016 No rodrick steven eligible based on patient's age to complete this topic HPV Vaccines Completed 04/05/2018, 05/24, 06/19/2015 18 year Well Child Check-Up Completed 10/10/2024 Well Child Check-Up (WCC) Completed Well Child Check-Up Completed in Past Year Completed 10/10/2024 Anemia/Iron Deficiency Screening During Well Child Visit (if High Risk Menstruating Female) Completed 04/11/2025 Depression Monitoring (PHQ-9 for quality tracking) Completed 04/11/2025 Procedures Procedure Name Priority Date/Time Associated Diagnosis Comments BI ULTRASOUND BREAST FOCUSED BILATERAL RAD - Routine (most inpatients and all outpatients) 06/09/2025 8:03 AM CDT Lump In The Right Breast Upper Outer Quadrant Lump In The Left Breast Upper Outer Quadrant HEMOGLOBIN, B Routine 04/11/2025 2:48 PM CDT Menorrhagia THYROID FUNCTION CASCADE, S Routine 04/11/2025 2:48 PM CDT Menorrhagia from Last 3 Months Results * BI Ultrasound Breast Focused Bilateral [...] ASSESSMENT: BI-RADS: 1: Negative. Beverly Rosenberg M.D. IMG BI PROCEDURES Final Result * Thyroid Function [place] (04/11/2025 2:48 PM CDT) TSH, Sensitive 0.5 0.3 - 4.2 mIU/L 04/11/2025 4:11 PM CDT ECLR Blood (Blood, Venous) 04/11/2025 2:48 PM CDT 04/11/2025 3:19 PM CDT Que Don M.D. LAB BLOOD ADD-ON Final Resu lt [facility] [address] [place] [id number], [facility] ECLR [facility] in [address] [address] * Hemoglobin (04/11/2025 2:48 PM CDT) Hemoglobin 13.0 11.6 - 15.0 g/dL 04/11/2025 3:38 PM CDT ECLR Blood (Blood, Venous) 04/11/2025 2:48 PM CDT 04/11/2025 3:19 PM CDT us Que Don M.D. LAB BLOOD ADD-ON Final Resu lt [facility] [address] [place] [address], [place] ECLR [facility] in [place] [address] [place] [address] from Last 3 Months Insurance Lot [id number] [address] [place] [address] [place] [employer] Care Teams Rolls Mill Operator Relationship Specialty Start Date End Date Minda Flower M.D. [address] [place] [phone] PCP - General Family Medicine 10/17/24
--- OUTSIDE RECORDS SUMMARY | 2025-07-03 20:19 | XMS_ITS | Encounter Summary ---
Author Organization [facility] Address [address] [place] [address] Care Team Providers Care [place] Worker Name Role Phone Minda Flower M.D. Primary Care Provider Reason for Referral * Outpatient (Routine) - Authorized Specialty Diagnoses / Procedures Referred By Contac t Referred To Contact Family Medicine Minda Flower M.D. [address] [place] [address] Phone: tel: fax: [facility] Referral ID Status Reason Start Date Expiration Date V isits Requested Visits Authorized [id number] Authorized 06/09/2025 12/09/2026 1 1 Scheduling Instructions Breast exam Reason for Visit * Reason Onset Date Comments HERS (negative palp) 06/09/2025 Encounter Details Date Type Department Care Team (Latest Contact Info) Description 06/09/2025 Clinical Communication Department of Radiology, [facility], in [place], [place] [address] [place] [address] Shanta Santos, R.N. HERS (negative palp) Social History Tobacco Use Types Packs/Day Years Used Date Smoking Tobacco: Never Passive Smoke Exposure: Past Smokeless Tobacco: Never Alcohol Use Standard Drinks/Week Comments Yes 1 (1 standard drink = 0.6 oz pur e alcohol) [facility] Utilities Answer Date Recorded In the past 12 months has th e electric, gas, oil, or water company [...] your living situation today? I have a [facility] place to live 10/10/2024 Comments No Sex and Gender Information Value Date Recorded Sex Assigned at Female 10/10/2024 9:07 AM PERFORMANCE REPORTER Legal Sex Female 5:05 PM PERFORMANCE REPORTER Gender Identity Female 10/10/2024 9:07 AM PERFORMANCE REPORTER Sexual Orientation Choose not to disclose 2023 9:07 AM PERFORMANCE REPORTER documented as of this encounter Miscellaneous Notes * Telephone Encounter - Shanta Santos R.N. - 06/09/2025 8:08 AM CDT Patient was in the [facility] Radiology department for imaging of a breast lump (felt by provider orpatient). She was given negative results (Bi-Rads 1). The Radiologist is recommending clinical management of palpable area in 6-8 weeks. Please call and schedule patient for a follow up clinical breast examination with your office. documented in this encounter Plan of Treatment Upcoming Encounters Date Type Department Care Team (Late st Contact Info) Description 10/17/2025 11:30 AM PERFORMANCE REPORTER Office Visit Department of Family Medicine in [place], [place] [address] [place] [phone] Minda Flower M.D. [address] [facility] [place] [phone] Scheduled Referrals Name Type Priority Associated Diagnoses Orde r Schedule Family Medicine office visit (clinic) Outpatient Referral Routine Expected: 07/28/2025, Expires: 09/09/2026 documented as of this encounter Visit Diagnoses Not on filedocumented in this encounter Additional Health Concerns Assessment Noted Time PHQ-9 Depression Total Score: 19 025 3:59 PM CDT documented as of this encounter Care Teams Antisqueak Worker Relationship Specialty Start Date End Date Minda Flower M.D. [address] [place] [phone] PCP - General Family Medicine 10/17/24 documented as of this encounter
[2025-07-03 20:29] VITALS: BP 126/76; PULSE 95; RESP 16; TEMP 36.9; O2SAT 98; BMI 31.3
--- NOTE | 2025-07-03 21:23 | ED.GENADULT ---
HPI - General Adult General Time Seen by Provider: 21:23 Date Seen: 07/03/25 Chief complaint: Post Op Complication Stated complaint: Had oral surgery today, stitch out Time Seen by Provider: 07/03/25 20:53 Source: patient and RN notes reviewed Mode of arrival: ambulatory Limitations: no limitations History of Present Illness HPI narrative: Poppy is a very pleasant 19-year-old female who earlier today had 4 wisdom teeth removed in [facility][Note 3]. Her mom went and got her and as she they were driving home they felt very concerned about the amount of bleeding that she was experiencing. They note that they have had to change the gauze pads frequently. Also of concern is a stitch that appears to be un tied on the left bottom area of removal. She has not had any fever. Her pain has not seemed extreme. They did not check with local oral surgeons or dentist but rather called back to [place]. They were told to come to the emergency room. Related Data Home Medications ?Medication ?Instructions ?Recorded ?Confirmed dexmethylphenidate 10 mg ea PO 09/05/22 09/05/22 capsule,extended release [id number] dexmethylphenidate 10 mg tablet 10 mg PO QAM 09/05/22 09/05/22 escitalopram oxalate 10 mg tablet 10 mg PO QDAY 09/05/22 09/05/22 Allergies Allergy/AdvReac Type Severity Reaction Status Date / Time amoxicillin Allergy Mild Hives Verified 07/03/25 20:32 Review of Systems Status of ROS: Reports: 6 or more systems reviewed and unremarkable except as noted in History and below [facility] Social History Smoking Status: Never smoker Non-prescribed substance use: denies use Exam Narrative: Exam Narrative: Poppy is alert and oriented. She is nontoxic in appearance. She has gauze in normal. These were placed while she was in the waiting room. I gently removed them. Does have some thin bloody discharge but no clots. Evaluation of the mouth shows no active bleeding. She does have 2 sutures extending from the bottom wisdom tooth holes that are not tight at this time. They were both removed without difficulty. Const: Vital Signs, click to edit/add: Vital Signs - 24 hr 07/03/25 20:29 07/03/25 21:52 Temperature 98.5 F 98.5 F Pulse Rate [Pulse Oximeter] 95 81 Respiratory Rate 16 16 Blood Pressure [Ri ght Upper Arm] 126/76 Pulse Oximetry 98 99 Oxygen Delivery Me thod Room Air Room Air Documenting provider has reviewed patient's vital signs: yes Course Vital Signs Vital signs: Initial Vital Signs Temperature 98.5 F 07/03/25 20:29 Temperature Source Temporal Artery Scan 07/03/25 20:29 Pulse Rate 95 07/03/25 20:29 Respiratory Rate 16 07/03/25 20:29 Blood Pressure 126/76 07/03/25 20:29 Blood Pressure Mean 92 07/03/25 20:29 Blood Pressure Position Sitting 07/03/25 20:29 Pulse Oximetry 98 07/03/25 20:29 Oxygen Delivery Method Room Air 07/03/25 20:29 Vital Signs Temperature 98.5 F 07/03/25 20:29 Pulse Rate 95 07/03/25 20:29 Respiratory Rate 16 07/03/25 20:29 Blood Pressure 126/76 07/03/25 20:29 Pulse Oximetry 98 07/03/25 20:29 Oxygen Delivery Method Room Air 07/03/25 20:29 Temperature 98.5 F 07/03/25 21:52 Pulse Rate 81 07/03/25 21:52 Respiratory Rate 16 07/03/25 21:52 Blood Pressure 126/76 07/03/25 20:29 Pulse Oximetry 99 07/03/25 21:52 Oxygen Delivery Method Room Air 07/03/25 21:52 Medical Decision Making MDM Narrative Medical decision making narrative: 1. [place] tooth removal-bleeding at this time appears to be normal. Reassurance for what I am seeing. Recommend less frequent gauze changes as every time the gauze is removed any clot that has formed is being removed. I did replace with a small amount of sterile water on a 1 x 1 folded in quarters and then a dry 1 x 1 on top of that. Patient seems to be feeling better. I declined to place a stitch at this time but heavily recommend follow-up with local oral surgeon or dentist. The phone numbers for both in [place] are given. Family lives in [facility] and likely have even greater opportunities for oral surgeon evaluation tomorrow. 2. Disposition-at this time did not need to use surge gel injection or stitch for limited bleeding. The bleeding that I am seeing appears to be normal. Of course should Poppy suddenly have increased bleeding lightheadedness would have them return to the ER for further evaluation. They feel comfortable with our plan. Medical Records Medical records reviewed: Yes I reviewed the patient's medical records Discharge Plan Discharge Clinical Impression: Broken suture, [place] teeth removed Patient Disposition: Home, Self-Care Condition: Improved Additional Instructions: 1. You to provide gauze pressure. Return for active in ongoing bleeding. What I am seeing here tonight is normal. 2. Follow-up tomorrow with oral surgeon: There is [address] place in [facility] oral surgeons phone number [phone] Following are 2 dental offices in [facility]. [facility] dental phone number [phone] Professional dental practice [phone] for As you live in [place] you may have access to even more oral surgeons. Return as needed Prescriptions: No Action escitalopram oxalate 10 mg tablet 10 mg PO QDAY Patient Comments: TAKE 1/2 TABLET BY MOUTH ONCE A DAY FOR 2 WEEKS, THEN INCREASE TO 1 TABLET DAILY TOLERATED dexmethylphenidate 10 mg tablet 10 mg PO QAM Patient Comments: TAKE 1 TABLET BY MOUTH EVERY DAY IN THE MORNING dexmethylphenidate 10 mg capsule,ER biphasic 50-50 PO Patient Comments: TAKE 1 CAPSULE BY MOUTH EVERY DAY IN THE MORNING Follow Up/Referrals: Cinda Chahal MD [Primary Care Provider, Family Practice] Stand Alone Forms: [employer]oj[employer] Info Instructions
[2025-07-03 21:52] VITALS: PULSE 81; RESP 16; TEMP 36.9; O2SAT 99
== END 2025-07-03 21:54 | disposition home or self-care (01) ==
LOC: ED 21:45
PROVIDERS: Emergency Provider Family Medicine; PCP Family Medicine
DX: T81.89XA Other complications of procedures, not elsewhere classified, initial encounter (principal)
CPT/HCPCS: 99283